=== PATIENT | male | born 1935 | race Caucasian/White ===

== ENCOUNTER 2017-08-30 08:24 | Emergency (ER) | payer MEDICARE, MEDICAID ==
[2017-08-30 08:39] VITALS: BP 118/43; RESP 21; TEMP 96.7; O2SAT 100
[2017-08-30] MEDS ORDERED: Sodium Chloride 0.9% 1,000 ML IV STA (09:11)
[2017-08-30] MEDS ORDERED: Magnesium Citrate Oral SOL (300 ml) PO ONE ×2 (09:12→11:05)
--- NOTE | 2017-08-30 09:14 | ED PDOC ---
HPI: General Adult Time Seen by Provider: 08/30/17 08:45 Chief Complaint (Nursing): Male Genitourinary Chief Complaint (Provider): Constipation History Per: Patient History/Exam Limitations: no limitations Onset/Duration Of Symptoms: Days (x1 week) Current Symptoms Are (Timing): Still Present Additional Complaint(s): Víctor Gonzalez is an 81 year old male, with a past medical history of hypertension, who presents to the emergency department complaining of constipation onset for 1 week and difficulty urinating onset for 2 days. He reports having a large hemorrhoid. Last bowel movement was 4 or 5 days ago. Patient denies any headache, chest pain, shortness of breath, abdominal pain, nausea or vomit. No further medical complaints. PMD: None provided. Past Medical History Reviewed: Historical Data, Nursing Documentation, Vital Signs Vital Signs: Last Vital Signs Temp 96.7 F L 08/30/17 08:37 Pulse 59 L 08/30/17 09:47 Resp 21 08/30/17 08:37 BP 118/43 L 08/30/17 08:37 Pulse Ox 100 08/30/17 09:47 - Medical History PMH: Fractures, HTN, Hypercholesterolemia Denies: HIV, Chronic Kidney Disease - Surgical History Surgical History: CABG - Family History Family History: States: Unknown Family Hx - Living Arrangements Living Arrangements: With Family - Social History Current smoker - smoking cessation education provided: No Alcohol: None Drugs: Denies - Home Medications Home Medications: Ambulatory Orders Medication Instructions Recorded Non-Formulary 1 tab PO 02/27/15 Polyethylene Glycol 3350 [Miralax] 17 g PO DAILY #30 packet 08/30/17 - Allergies Allergies/Adverse Reactions: Allergies Allergy/AdvReac Type Severity Reaction Status Date / Time No Known Allergies Allergy Verified 08/30/17 08:36 Review of Systems ROS Statement: Except As Marked, All Systems Reviewed And Found Negative Cardiovascular: Negative for: Chest Pain Respiratory: Negative for: Shortness of Breath Gastrointestinal: Positive for: Constipation. Negative for: Nausea, Vomiting, Abdominal Pain Genitourinary Male: Positive for: Incontinence Physical Exam - Reviewed Nursing Documentation Reviewed: Yes - Physical Exam Appears: Positive for: Well, Non-toxic, No Acute Distress Head Exam: Positive for: ATRAUMATIC, NORMAL INSPECTION, NORMOCEPHALIC Skin: Positive for: Normal Color, Warm, Dry Eye Exam: Positive for: EOMI, Normal appearance, PERRL Neck: Positive for: Normal, Painless ROM, Supple Cardiovascular/Chest: Positive for: Regular Rate, Rhythm. Negative for: Murmur Respiratory: Positive for: Normal Breath Sounds. Negative for: Respiratory Distress Gastrointestinal/Abdominal: Positive for: Normal Exam, Bowel Sounds, Soft. Negative for: Tenderness, Guarding, Rebound Rectal: Positive for: Normal Exam (witnessed by nurse and scribe. Good sphincter ), Hemorrhoids (large external. No thrombus. tender to touch), Other (copious stool. Disimpacted large quantities, non bloody appearance) Extremity: Positive for: Normal ROM. Negative for: Pedal Edema, Deformity, Swelling Neurologic/Psych: Positive for: Alert, Oriented. Negative for: Motor/Sensory Deficits - Laboratory Results Result Diagrams: 08/30/17 09:51 08/30/17 09:51 - ECG ECG Rhythm: Positive for: Sinus Rhythm Interpretation Of ECG: AV Block Rate: 59 O2 Sat by Pulse Oximetry: 100 (RA) Pulse Ox Interpretation: Normal Medical Decision Making Medical Decision Making: Initial Impression: constipation Initial Plan: --ECG --BMP --CBC w/ differential --Citrate of Mag 150 ml PO --NS IV 1,000 ml @ 1,000 mls/hr ---Urinalysis --reevaluation Scribe Attestation: Documented by Giovanny Maloney, acting as a scribe for Deysi Medina MD Provider Scribe Attestation: All medical record entries made by the Scribe were at my direction and personally dictated by me. I have reviewed the chart and agree that the record accurately reflects my personal performance of the history, physical exam, medical decision making, and the department course for this patient. I have also personally directed, reviewed, and agree with the discharge instructions and disposition. patient has had small amounts of bowel movements and has been able to micturate. Will discharge with Miralax to continue daily. All interactions were done in Cantonese, my [place] dialect. Patient expressed full understanding. Disposition - Clinical Impression Clinical Impression: Constipation - Patient ED Disposition Is Patient to be Admitted: No Doctor Will See Patient In The: Office Counseled Patient/Family Regarding: Diagnosis, Need For Followup, Rx Given - Disposition Disposition: Routine/Home Disposition Time: 14:20 Condition: IMPROVED Additional Instructions: If you have not had a colonoscopy, it is important for you to be scheduled for one. Prescriptions: Polyethylene Glycol 3350 [Miralax] 17 g PO DAILY #30 packet Instructions: Constipation (ED) Forms: [facility] (Swedish) - POA Present On Arrival: None
[2017-08-30 09:45] VITALS: PULSE 59
[2017-08-30] MEDS ORDERED: Magnesium Citrate Oral SOL (300 ml) ONE (09:52)
[2017-08-30 09:56] LABS: BASO % 0.2 % (0.0-2.0); EOS # 0.1 K/uL (0.0-0.7); EOS % 0.6 % (0.0-4.0); HEMATOCRIT 40.9 % (35.0-51.0); LYMPH # 0.9 K/uL (1.0-4.3); LYMPH % 6.1 % (20.0-40.0); MEAN CELL VOLUME 90.9 fl (80.0-94.0); MEAN CORPUSCULAR HEMOGLOBIN 30.6 pg (27.0-31.0); MEAN CORPUSCULAR HGB CONC 33.7 g/dL (33.0-37.0); MEAN PLATELET VOLUME 9.6 fl (7.2-11.7); MONO # 0.6 K/uL (0.0-0.8); MONO % 4.6 % (0.0-10.0); NEUT # 12.4 K/uL (1.8-7.0); NEUT % 88.5 % (50.0-75.0); PLATELET COUNT 196 K/uL (130-400); RED CELL DISTRIBUTION WIDTH 13.5 % (11.5-14.5); WHITE BLOOD COUNT 14.1 K/uL (4.8-10.8)
[2017-08-30 10:14] LABS: BLOOD UREA NITROGEN 22 mg/dl (9-20); CALCIUM 9.5 mg/dL (8.4-10.2); CARBON DIOXIDE 27 mmol/L (22-30); CHLORIDE 98 mmol/L (98-107); GFR AFRICAN-AMERICAN > 60; GLUCOSE,RANDOM 92 mg/dL (75-110); SODIUM 137 mmol/l (132-148)
[2017-08-30 10:15] LABS: URINE BILIRUBIN NEGATIVE (NEGATIVE); URINE BLOOD SMALL (NEGATIVE); URINE COLOR YELLOW (YELLOW); URINE GLUCOSE (UA) 50 mg/dL (Normal); URINE KETONE NEGATIVE (NEGATIVE); URINE LEUKOCYTE ESTERASE NEG Leu/uL (Negative); URINE PROTEIN NEGATIVE (NEGATIVE); URINE UROBILINOGEN 0.2-1.0 mg/dL (0.2-1.0); WBC URINE 1 /hpf (0-5)
[2017-08-30 10:17] LABS: RBC URINE 5 /hpf (0-3)
[2017-08-30 10:50] LABS: EOSINOPHIL 1 % (0-7); NEUTROPHIL 91 % (42-75); REACTIVE LYMPHOCYTES 1 % (0-0); TOTAL CELLS COUNTED 100
--- NOTE | 2017-08-31 10:41 | CARD ---
APPROVED REPORT EKG Measurement Heart [id number] <Conclusion> Sinus bradycardia with 1st degree AV block Incomplete right bundle branch block Borderline ECG
== END 2017-08-30 14:59 | disposition home or self-care (01) ==
LOC: H.ER 08:24
DX: K59.00 Constipation, unspecified (principal); I10 Essential (primary) hypertension; E78.00 Pure hypercholesterolemia, unspecified; I44.0 Atrioventricular block, first degree; Z95.1 Presence of aortocoronary bypass graft
CPT/HCPCS: 80048; 81003; 85025; 93005; 99284; J7040

== ENCOUNTER 2017-12-27 23:11 | Emergency (ER) | payer MEDICARE, MEDICAID ==
[2017-12-27 23:28] VITALS: TEMP 97.6
--- NOTE | 2017-12-27 23:52 | ED PDOC ---
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 denies: Nausea, Vomiting, Chest Pain, Urinary Symptoms Exacerbating Factors: None Last Bowel Movement: Days Ago (6+) Additional Complaint(s): 82yo mandarin speaking male presents c/o abdominal discomfort due to constipation, inability to have BM in almost a week. Has had chronic constipation before. Past Medical History Reviewed: Historical Data, Nursing Documentation, Vital Signs Vital Signs: Last Vital Signs Temp 97.6 F 12/27/17 23:19 Pulse 64 12/27/17 23:19 Resp 16 12/27/17 23:19 BP 111/52 L 12/27/17 23:19 Pulse Ox 100 12/27/17 23:54 - Medical History PMH: Fractures, HTN, Hypercholesterolemia Denies: HIV, Chronic Kidney Disease - Surgical History Surgical History: CABG Other surgeries: ? abdominal surgery for polyps? - Family History Family History: States: Unknown Family Hx - Living Arrangements Living Arrangements: With Family - Social History Current smoker - smoking cessation education provided: No - Home Medications Home Medications: Ambulatory Orders Medication Instructions Recorded Non-Formulary 1 tab PO 02/27/15 Polyethylene Glycol 3350 [Miralax] 17 g PO DAILY #30 packet 08/30/17 - Allergies Allergies/Adverse Reactions: Allergies Allergy/AdvReac Type Severity Reaction Status Date / Time No Known Allergies Allergy Verified 12/27/17 23:19 Review of Systems Constitutional: Negative for: Fever Respiratory: Negative for: Cough, Shortness of Breath Gastrointestinal: Positive for: Abdominal Pain, Constipation. Negative for: Nausea, Vomiting, Rectal Pain Genitourinary Male: Negative for: Dysuria Musculoskeletal: Negative for: Neck Pain Skin: Negative for: Rash, Lesions Neurological: Negative for: Weakness, Numbness Physical Exam - Reviewed Nursing Documentation Reviewed: Yes Vital Signs Reviewed: Yes - Physical Exam Appears: Positive for: Well, Non-toxic, No Acute Distress Head Exam: Positive for: ATRAUMATIC, NORMAL INSPECTION, NORMOCEPHALIC Skin: Positive for: Normal Color, Warm, DRY Eye Exam: Positive for: EOMI, Normal appearance, PERRL ENT: Positive for: Normal ENT Inspection Neck: Positive for: Normal, Painless ROM Cardiovascular/Chest: Positive for: Regular Rate, Rhythm Respiratory: Positive for: CNT, Normal Breath Sounds Gastrointestinal/Abdominal: Positive for: Soft, Tenderness (mild diffuse tenderness). Negative for: Guarding Back: Positive for: Normal Inspection Rectal: Positive for: Hemorrhoids (small 6:00), Other (+hard stool in vault). Negative for: Black Stool, Tenderness Extremity: Positive for: Normal ROM. Negative for: Tenderness Neurologic/Psych: Positive for: Alert, Oriented. Negative for: Motor/Sensory Deficits - ECG O2 Sat by Pulse Oximetry: 100 Pulse Ox Interpretation: Normal Medical Decision Making Medical Decision Making: basic labs, magnesium citrate and enema ordered Disposition - Clinical Impression Clinical Impression: Abdominal pain, Constipation - Disposition Disposition: Transfer of Care Disposition Time: 23:54 Condition: STABLE Forms: [employer] ([place] Island[place]) Patient Signed Over To: Arya Cloud
[2017-12-27] MEDS ORDERED: Magnesium Citrate Oral SOL (300 ml) PO ONE (23:54)
[2017-12-28 00:12] LABS: BASO % 0.2 % (0.0-2.0); EOS # 0.2 K/uL (0.0-0.7); EOS % 0.9 % (0.0-4.0); HEMOGLOBIN 12.1 g/dL (12.0-18.0); LYMPH # 0.7 K/uL (1.0-4.3); LYMPH % 3.3 % (20.0-40.0); MEAN CELL VOLUME 89.7 fl (80.0-94.0); MEAN CORPUSCULAR HEMOGLOBIN 30.3 pg (27.0-31.0); MEAN CORPUSCULAR HGB CONC 33.8 g/dL (33.0-37.0); MEAN PLATELET VOLUME 9.3 fl (7.2-11.7); MONO # 0.7 K/uL (0.0-0.8); MONO % 3.4 % (0.0-10.0); NEUT # 18.4 K/uL (1.8-7.0); NEUT % 92.2 % (50.0-75.0); PLATELET COUNT 187 K/uL (130-400); RBC 3.98 Mil/uL (4.40-5.90); RED CELL DISTRIBUTION WIDTH 13.7 % (11.5-14.5)
[2017-12-28 00:25] LABS: ALB/GLOB RATIO 1.1 (1.0-2.1); ALBUMIN 3.8 g/dL (3.5-5.0); CALCIUM 9.3 mg/dL (8.4-10.2)
[2017-12-28] MEDS ORDERED: Magnesium Citrate Oral SOL (300 ml) ONE (00:28)
--- NOTE | 2017-12-28 01:32 | RAD ---
EXAM: XR Abdomen 2 Views With XR Chest EXAM DATE/TIME: 12/27/2017 11:54 PM CLINICAL HISTORY: 82 years old, male; Signs and symptoms; Constipation TECHNIQUE: Frontal view of the chest, frontal view of the abdomen/pelvis and upright or decubitus view of the abdomen. COMPARISON: No relevant prior studies available. FINDINGS: Sternotomy wires. Clips in the left lower thorax. Left femoral hardware. The cardiac silouette is at the upper limits of normal. The lungs are clear. There is a cluster of air filled bowel loops in the right lower abdomen with a nonspecific appearance Stool is noted throughout the left colon likely mild constipation. Rounded calcifications in the pelvis likely phleboliths. Syndesmophyte formation in the spine. IMPRESSION: Probable left-sided constipation. Cluster of air-filled bowel loops in the lower right abdomen with nonspecific appearance at this time.
[2017-12-28] MEDS ORDERED: Iohexol 240 (50 ml) PO ONE (01:33)
[2017-12-28] MEDS ORDERED: Iohexol 240 (50 ml) ONE (01:50)
[2017-12-28 02:13] LABS: VENOUS BLOOD GAS BASE EXCESS 0.8 mmol/L (0.0-2.0); VENOUS BLOOD GAS PCO2 54 mmHg (40-60); VENOUS BLOOD GAS PO2 15 mm/Hg (30-55); VENOUS BLOOD PH 7.32 (7.32-7.43)
[2017-12-28] MEDS ORDERED: Iohexol 300 100 ML IJ ONE (03:49)
[2017-12-28 04:44] VITALS: BP 128/63; PULSE 76; RESP 18; O2SAT 99
[2017-12-28 05:00] LABS: BANDS 3 % (0-2); EOSINOPHIL 1 % (0-7); LYMPHOCYTE 3 % (20-50); MONOCYTE 4 % (0-10); NEUTROPHIL 87 % (42-75); REACTIVE LYMPHOCYTES 2 % (0-0); TOTAL CELLS COUNTED 100
[2017-12-28 05:01] LABS: PLATELET ESTIMATE NORMAL (NORMAL)
--- NOTE | 2017-12-28 05:30 | CT ---
EXAM: CT Abdomen and Pelvis With Intravenous Contrast EXAM DATE/TIME: 12/28/2017 1:33 AM CLINICAL HISTORY: 82 years old, male; Pain; Abdominal pain; Other: Rectal bleeding; Additional info: Abd pain, leukocytosis TECHNIQUE: Axial computed tomography images of the abdomen and pelvis with intravenous contrast. All CT scans at this facility use one or more dose reduction techniques, viz.: automated exposure control; ma/kV adjustment per patient size (including targeted exams where dose is matched to indication; i.e. head); or iterative reconstruction technique. Coronal and sagittal reformatted images were created and reviewed. CONTRAST: 95 mL of omnipaque 300 administered intravenously. COMPARISON: No relevant prior studies available. FINDINGS: Sternotomy wires. Hardware in the left femur. There is an 8 x 10 mm pleural-based area of consolidation in the left lower lung image 5 may be an area of chronic atelectasis although underlying developing lesion would also be possible. Recommend correlation with priors if they exist. Otherwise followup recommended. Small hypoattenuating hepatic lesions with the largest measuring 2 cm in the left lobe probable cysts or hemangiomas, some too small to accurately characterize. The gallbladder is distended. No pericholecystic inflammation identified. Trace prominence of the intrahepatic biliary ducts. Correlation with laboratory values may be helpful. The spleen and pancreas are normal. Slight fullness of the right renal collecting system likely secondary to dilated urinary bladder. No perinephric stranding. The colon and rectum are markedly dilated with stool consistent with severe constipation. The amount of stool suggests fecal impaction most notably in the rectum where there is slight haziness in the surrounding fat. A normal appendix is identified series 3 images 96 through 112. There are atherosclerotic changes of the aorta. There are degenerative changes in the osseous structures. IMPRESSION: Severe colonic and rectal constipation to the point of fecal impaction.
--- NOTE | 2017-12-28 05:39 | ED PDOC ---
- Laboratory Results Result Diagrams: 12/28/17 00:05 12/28/17 00:05 - ECG O2 Sat by Pulse Oximetry: 99 (RA) Pulse Ox Interpretation: Normal Medical Decision Making Medical Decision Making: Time: 00:00 --endorsed by Dr. Leonard to myself. Time: 01:33 Plan: --Abd Pelvis CT --VBG shock panel --Omnipaque 2 50 ml PO Abdomen Pelvis CT FINDINGS: Sternotomy wires. Hardware in the left femur. There is an 8 x 10 mm pleural-based area of consolidation in the left lower lung image 5 may be an area of chronic atelectasis although underlying developing lesion would also be possible. Recommend correlation with priors if they exist. Otherwise followup recommended. Small hypoattenuating hepatic lesions with the largest measuring 2 cm in the left lobe probable cysts or hemangiomas, some too small to accurately characterize. The gallbladder is distended. No pericholecystic inflammation identified. Trace prominence of the intrahepatic biliary ducts. Correlation with laboratory values may be helpful. The spleen and pancreas are normal. Slight fullness of the right renal collecting system likely secondary to dilated urinary bladder. No perinephric stranding. The colon and rectum are markedly dilated with stool consistent with severe constipation. The amount of stool suggests fecal impaction most notably in the rectum where there is slight haziness in the surrounding fat. A normal appendix is identified series 3 images 96 through 112. There are atherosclerotic changes of the aorta. There are degenerative changes in the osseous structures. IMPRESSION: Severe colonic and rectal constipation to the point of fecal impaction. Gas Welder #[id number] was used to communicate with patient. After CT, patient had an extremely large BM and felt much better. States that he no longer has pain. Advised to followup with PMD. Return precautions discussed. Leukocytosis likely 2/2 to pain. Scribe Attestation: Documented by Rosa Hooks acting as a scribe for Arya Cloud MD. Scribe Attestation: All medical record entries made by the Scribe were at my direction and personally dictated by me. I have reviewed the chart and agree that the record accurately reflects my personal performance of the history, physical exam, medical decision making, and the department course for this patient. I have also personally directed, reviewed, and agree with the discharge instructions and disposition. Disposition - Clinical Impression Clinical Impression: Constipation - POA Present On Arrival: None - Disposition Referrals: Deysi Medina MD [Staff Provider] - Disposition: Routine/Home Disposition Time: 07:05 Condition: IMPROVED Prescriptions: Docusate Sodium [Dulcolax Stool Softener] 100 mg PO BID #30 capsule Instructions: Constipation in Adults Forms: [facility] ([place] African)
== END 2017-12-28 07:28 | disposition home or self-care (01) ==
LOC: H.ER 23:11
DX: R10.9 Unspecified abdominal pain (principal); K59.00 Constipation, unspecified
CPT/HCPCS: 74022; 74177; 80053; 82803; 83690; 85025; 99284; Q9966; Q9967

== ENCOUNTER 2018-07-25 04:53 | Inpatient (IN) | payer MEDICARE ==
[2018-07-25] MEDS ORDERED: Sodium Chloride 0.9% 1,000 ML IV STA ×2 (05:02→06:47)
--- NOTE | 2018-07-25 05:37 | ED PDOC ---
HPI: General Adult Time Seen by Provider: 07/25/18 04:59 Chief Complaint (Nursing): Dizziness/Lightheaded Chief Complaint (Provider): Chills, abdominal pain, diarrhea History Per: Patient History/Exam Limitations: no limitations Onset/Duration Of Symptoms: Days (x 2) Current Symptoms Are (Timing): Still Present Additional Complaint(s): 82 year old male with a history of CAD and quadruple bypass surgery presents to the ED with chills, abdominal pain, nausea and diarrhea for the last 2 days. Patient reports 2 days of a sense of chills, lower abdominal pain and several episodes of non bloody diarrhea. He has also vomited once prior to arrival and complains of generalized weakness. He is unaware of a fever. PMD: Dr. Rudy Smith ([facility]) Past Medical History Reviewed: Historical Data, Nursing Documentation, Vital Signs Vital Signs: Last Vital Signs Temp 98.7 F 07/25/18 04:56 Pulse 91 H 07/25/18 04:56 Resp 16 07/25/18 04:56 BP 100/45 L 07/25/18 04:56 Pulse Ox 99 07/25/18 04:56 - Medical History PMH: CAD, Fractures, HTN, Hypercholesterolemia Denies: HIV, Chronic Kidney Disease - Surgical History Surgical History: CABG - Family History Family History: States: Unknown Family Hx - Home Medications Home Medications: Ambulatory Orders Medication Instructions Recorded Atorvastatin [Lipitor] 40 mg PO HS 07/25/18 HCTZ/Losartan Potassium [Hyzaar 1 tab PO DAILY 07/25/18 12.5 mg-50 mg] Metoprolol Tartrate [Lopressor] 100 mg PO Q12 07/25/18 RX: Aspirin [Ecotrin] 81 mg PO DAILY 07/25/18 amLODIPine [Norvasc] 5 mg PO DAILY 07/25/18 - Allergies Allergies/Adverse Reactions: Allergies Allergy/AdvReac Type Severity Reaction Status Date / Time No Known Allergies Allergy Verified 07/25/18 04:59 Review of Systems ROS Statement: Except As Marked, All Systems Reviewed And Found Negative Constitutional: Positive for: Chills. Negative for: Fever Gastrointestinal: Positive for: Nausea, Vomiting ( x 1), Abdominal Pain, Diarrhea Physical Exam - Reviewed Nursing Documentation Reviewed: Yes Vital Signs Reviewed: Yes - Physical Exam Appears: Positive for: Non-toxic, No Acute Distress Head Exam: Positive for: ATRAUMATIC, NORMAL INSPECTION, NORMOCEPHALIC Skin: Positive for: Normal Color, Warm, Dry Eye Exam: Positive for: EOMI, Normal appearance, PERRL ENT: Positive for: Other (mucous membranes are dry; poor dentition) Neck: Positive for: Normal, Painless ROM, Supple Cardiovascular/Chest: Positive for: Tachycardia (with regular rhythm). Negative for: Murmur Respiratory: Positive for: Normal Breath Sounds. Negative for: Wheezing Gastrointestinal/Abdominal: Positive for: Normal Exam, Soft. Negative for: Tenderness Extremity: Positive for: Normal ROM (x 4). Negative for: Deformity Neurologic/Psych: Positive for: Alert, Oriented. Negative for: Motor/Sensory Deficits - Laboratory Results Result Diagrams: 07/27/18 04:25 07/26/18 04:55 - ECG O2 Sat by Pulse Oximetry: 99 (RA) Pulse Ox Interpretation: Normal Medical Decision Making Medical Decision Makin:02 Impression: 82 year old man with diarrheal illness and fever Initial Plan: --CT Abd & Pelvis --EKG --Labs --CXR --NS IV --Tylenol 650 mg PO --Zofran Inj 4 mg IV 07:00 --Patient will be signed out to Dr. Coppola pending labs, CT and reevaluation. Scribe Attestation: Documented by Rosa Hooks, acting as a scribe for Frankie Oseguera MD Provider Scribe Attestation: All medical record entries made by the Scribe were at my direction and p ersonally dictated by me. I have reviewed the chart and agree that the record accurately reflects my personal performance of the history, physical exam, medical decision making, and the department course for this patient. I have also personally directed, reviewed, and agree with the discharge instructions and disposition. Disposition - Clinical Impression Clinical Impression: Hypotension, Sepsis, Diarrhea - Patient ED Disposition Is Patient to be Admitted: Transfer of Care - Disposition Disposition: Transfer of Care Disposition Time: 07:00 Condition: FAIR Patient Signed Over To: Darius Coppola - Pt Status Changed To: Hospital Disposition Of: Inpatient - Admit Certification Admit to Inpatient:: After my assessment, the patient will require hospitalization for at least two midnights. This is because of the severity of symptoms shown, intensity of services needed, and/or the medical risk in this patient being treated as an outpatient.
[2018-07-25 05:52] LABS: BASO % 0.1 % (0.0-2.0); EOS % 0.1 % (0.0-4.0); HEMOGLOBIN 11.3 g/dL (12.0-18.0); LYMPH # 0.1 K/uL (1.0-4.3); LYMPH % 1.9 % (20.0-40.0); MEAN CELL VOLUME 91.7 fl (80.0-94.0); MEAN CORPUSCULAR HGB CONC 33.8 g/dL (33.0-37.0); MEAN PLATELET VOLUME 10.6 fl (7.2-11.7); MONO % 0.5 % (0.0-10.0); NEUT # 5.3 K/uL (1.8-7.0); NEUT % 97.4 % (50.0-75.0); NRBC % 0.1 % (0.0-0.0); PLATELET COUNT 130 K/uL (130-400); RBC 3.66 Mil/uL (4.40-5.90); RED CELL DISTRIBUTION WIDTH 13.2 % (11.5-14.5); WHITE BLOOD COUNT 5.4 K/uL (4.8-10.8)
[2018-07-25 06:00] LABS: ALBUMIN 3.4 g/dL (3.5-5.0); CALCIUM 8.8 mg/dL (8.4-10.2)
[2018-07-25] MEDS ORDERED: Iohexol 240 (50 ml) PO ONE (06:08)
[2018-07-25 06:11] LABS: TROPONIN I 0.116 ng/mL (0.00-0.120)
[2018-07-25] MEDS ORDERED: Iohexol 240 (50 ml) ONE (06:54)
--- NOTE | 2018-07-25 07:01 | CARD ---
APPROVED REPORT Date of service: 07/25/2018 EKG Measurement Heart [id number] CT [id number] <Conclusion> Sinus rhythm with 1st degree AV block Incomplete right bundle branch block Nonspecific ST abnormality Abnormal ECG
--- NOTE | 2018-07-25 07:22 | ED PDOC ---
- Laboratory Results Result Diagrams: 07/25/18 05:46 07/25/18 05:46 - ECG O2 Sat by Pulse Oximetry: 100 Medical Decision Making Medical Decision Makin Patient endorsed to me by Dr. Oseguera pending labs, CT, and reevaluation. Pt appears to be septic with UTI as source. Lactate elevated with fluid bolus given, repeat lactate dropping. BP 90 systolic range. Will start IV Vanco Zosyn. BUN/Creat noted. Scribe Attestation: Documented by Jorge Bustillo, acting as a scribe for Darius Coppola MD. Provider Scribe Attestation: All medical record entries made by the Scribe were at my direction and personally dictated by me. I have reviewed the chart and agree that the record accurately reflects my personal performance of the history, physical exam, medical decision making, and the department course for this patient. I have also personally directed, reviewed, and agree with the discharge instructions and disposition. Disposition - Clinical Impression Clinical Impression: Sepsis, UTI (urinary tract infection), Renal insufficiency - POA Present On Arrival: None - Disposition Disposition: Admitted as In-Patient Disposition Time: 10:40 Condition: FAIR Forms: [employer] (Mauritanian)
[2018-07-25 07:24] LABS: ANISOCYTOSIS SLIGHT; LYMPHOCYTE 3 % (20-50); MICROCYTOSIS SLIGHT; MONOCYTE 2 % (0-10); NEUTROPHIL 95 % (42-75); PLATELET ESTIMATE SLIGHTLY DECREASED (NORMAL); TOTAL CELLS COUNTED 100
[2018-07-25 07:25] LABS: LARGE PLATELETS PRESENT; OVALOCYTES SLIGHT
--- NOTE | 2018-07-25 08:28 | RAD ---
Date of service: 07/25/2018 HISTORY: fever COMPARISON: 02/26/2015 FINDINGS: LUNGS: No interval consolidation appreciated. Central bronchovascular markings appear borderline prominent-in part likely technical. PLEURA: No significant pleural effusion identified, no pneumothorax apparent. CARDIOVASCULAR: There is presence of aortic atherosclerotic calcification on x-ray. Mild cardiomegaly present. No significant appearing pulmonary vascular congestion. OSSEOUS STRUCTURES: Moderate thoracic spondylosis. Interval midline sternotomy and coronary artery bypass surgery. VISUALIZED UPPER ABDOMEN: Normal. OTHER FINDINGS: None. IMPRESSION: Interval sternotomy/interval coronary artery bypass surgery. No consolidation to suggest a pulmonary infiltrate
[2018-07-25] MEDS ORDERED: Potassium Chloride 20 mEq ER Tab PO ONE ×2 (08:59→09:55)
[2018-07-25 09:58] LABS: VENOUS BLOOD GAS BASE EXCESS -4.7 mmol/L (0.0-2.0); VENOUS BLOOD GAS PCO2 37 mmHg (40-60); VENOUS BLOOD GAS PO2 37 mm/Hg (30-55); VENOUS BLOOD PH 7.35 (7.32-7.43)
[2018-07-25 10:22] LABS: SQUAMOUS EPITHIAL < 1 /hpf (0-5); URINE BACTERIA MANY (<OCC); URINE BILIRUBIN NEGATIVE (NEGATIVE); URINE BLOOD MODERATE (NEGATIVE); URINE CLARITY CLOUDY (Clear); URINE COLOR YELLOW (YELLOW); URINE GLUCOSE (UA) NEG (Normal); URINE LEUKOCYTE ESTERASE LARGE Leu/uL (Negative); URINE PROTEIN 30 mg/dL (NEGATIVE); URINE UROBILINOGEN 0.2-1.0 mg/dL (0.2-1.0)
--- NOTE | 2018-07-25 10:23 | CT ---
Date of service: 07/25/2018 PROCEDURE: CT Abdomen and Pelvis without intravenous contrast HISTORY: abd pain/diarrhea' COMPARISON: CT scan of the abdomen pelvis dated 01/07/2018 TECHNIQUE: Contiguous images were obtained from the domes of the diaphragms to the upper thighs without the administration of intravenous contrast. Oral contrast was administered. Radiation dose: Total exam DLP = 200.6 mGy-cm. This CT exam was performed using one or more of the following dose reduction techniques: Automated exposure control, adjustment of the mA and/or kV according to patient size, and/or use of iterative reconstruction technique. FINDINGS: LOWER THORAX: Cardiomegaly. Coronary arterial and valvular calcifications. Chronic interstitial markings. Bibasilar atelectasis/scarring.. LIVER: 2.3 cm medial right hepatic lobe cyst/hemangioma redemonstrated. Additional scattered small cysts/hemangiomas redemonstrated. No gross lesion or ductal dilatation. GALLBLADDER AND BILE DUCTS: Unremarkable. PANCREAS: Unremarkable. No gross lesion or ductal dilatation. SPLEEN: Unremarkable. ADRENALS: Left adrenal nodular thickening. No mass. KIDNEYS AND URETERS: Unremarkable. No hydronephrosis. No solid mass. VASCULATURE: Unremarkable. No aortic aneurysm. Aortic atherosclerotic calcification and mural plaque present. BOWEL: Unremarkable. No obstruction. No gross mural thickening. APPENDIX: Unremarkable. Normal appendix. PERITONEUM: Unremarkable. No free fluid. No free air. LYMPH NODES: Unremarkable. No enlarged lymph nodes. BLADDER: Unremarkable. REPRODUCTIVE: Prostatomegaly. BONES: No acute fracture. Spinal degenerative changes. Partially imaged left femoral intramedullary martha and screw OTHER FINDINGS: None. IMPRESSION: No acute abdominal pelvic pathology. Stable findings as above.
[2018-07-25] MEDS ORDERED: Piperacillin/Tazobact 3.375 GM in Sodium Chloride 0.9% 100 ML IVPB STA (10:30)
[2018-07-25] MEDS ORDERED: Piperacillin/Tazobact 3.375 gm Inj IVPB ONE (10:37)
[2018-07-25] MEDS ORDERED: Vancomycin 1 g Inj ONE (11:37)
--- NOTE | 2018-07-25 12:31 | CP.PCM.HP ---
History of Present Illness - History of Present Illness History of Present Illness: 82 year old male with a history of CAD and quadruple bypass surgery, HTN and HLD presents to the ED c/o episodes of chills, abdominal pain, nausea and 5 episodes of NB diarrhea for the last 2 days. He has also vomited once prior to arrival and complains of generalized weakness. He is unaware of a fever. Associated sob. On ED blood pressure was found in the low side with associated tachycardia. Patient denies chest pain, headaches, blurred vision, dizziness, no urinary symptoms, recent illness or sick contacts. PMD: Dr. Rudy Smith ([facility]) PMH: HTN, HLD, CAD PSH: coronary bypass x4 Meds: as bellow NKDA FMH: noncontributory SH: denies tobacco, etoh or ilicit drugs Present on Admission - Present on Admission Any Indicators Present on Admission: No Review of Systems - Review of Systems All systems: reviewed and no additional remarkable complaints except (HPI) Past Patient History - Tetanus Immunizations Tetanus Immunization: Unknown - Past Medical History & Family History Past Medical History?: Yes - Past Social History Smoking Status: Never Smoked - CARDIAC Hx Hypercholesterolemia: Yes Hx Hypertension: Yes - PULMONARY Hx Respiratory Disorders: No - NEUROLOGICAL Hx Neurological Disorder: No - HEENT Hx HEENT Problems: No - RENAL Hx Chronic Kidney Disease: No - ENDOCRINE/METABOLIC Hx Endocrine Disorders: No - HEMATOLOGICAL/ONCOLOGICAL Hx Human Immunodeficiency Virus (HIV): No - INTEGUMENTARY Hx Dermatological Problems: No - MUSCULOSKELETAL/RHEUMATOLOGICAL Hx Fractures: Yes - GASTROINTESTINAL Hx Gastrointestinal Disorders: No - GENITOURINARY/GYNECOLOGICAL Hx Genitourinary Disorders: No - PSYCHIATRIC Hx Psychophysiologic Disorder: No Hx Substance Use: No - SURGICAL HISTORY Hx Coronary Artery Bypass Graft: Yes - ANESTHESIA Hx Anesthesia: Yes Hx Anesthesia Reactions: No Hx Malignant Hyperthermia: No Meds Allergies/Adverse Reactions: Allergies Allergy/AdvReac Type Severity Reaction Status Date / Time No Known Allergies Allergy Verified 07/25/18 04:59 Physical Exam - Constitutional Appears: No Acute Distress - Head Exam Head Exam: NORMAL INSPECTION - Eye Exam Eye Exam: EOMI - Respiratory Exam Respiratory Exam: Clear to Auscultation Bilateral - Cardiovascular Exam Cardiovascular Exam: REGULAR RHYTHM, +S1, +S2 - GI/Abdominal Exam GI & Abdominal Exam: Soft. absent: Distended, Tenderness - Extremities Exam Extremities exam: Negative for: pedal edema - Neurological Exam Neurological exam: Alert, Oriented x3 - Skin Skin Exam: Dry, Warm Results - Vital Signs Recent Vital Signs: Last Vital Signs Temp 98.2 F 07/25/18 12:29 Pulse 97 H 07/25/18 12:29 Resp 16 07/25/18 12:29 BP 91/45 L 07/25/18 12:29 Pulse Ox 98 07/25/18 12:29 - Labs Result Diagrams: 07/25/18 05:46 07/25/18 05:46 Labs: Laboratory Results - last 24 hr 07/25/18 07/25/18 07/25/18 05:10 05:46 05:46 WBC 5.4 D RBC 3.66 L Hgb 11.3 L Hct 33.5 L MCV 91.7 D MCH 31.0 MCHC 33.8 RDW 13.2 Plt Count 130 MPV 10.6 Neut % (Auto) 97.4 H Lymph % (Auto) 1.9 L K[place]t % (Auto) 0.5 Eos % (Auto) 0.1 Baso % (Auto) 0.1 Neut # (Auto) 5.3 Lymph # (Auto) 0.1 L Knott # (Auto) 0.0 Eos # (Auto) 0.0 Baso # (Auto) 0.0 Neutrophils % (Manual) 95 H Lymphocytes % (Manual) 3 L Monocytes % (Manual) 2 Platelet Estimate Slightly decreased L Large Platelets Present Anisocytosis (manual) Slight Microcytosis (manual) Slight Ovalocytes Slight pO2 VBG pH VBG pCO2 VBG HCO3 VBG Total CO2 VBG O2 Sat (Calc) VBG Base Excess VBG Potassium Glucose Lactate FiO2 Crit Value Called To Crit Value Called By Crit Value Read Back Blood Gas Notified Time Sodium 136 Potassium 2.8 L Chloride 103 Carbon Dioxide 22 Anion Gap 14 BUN 38 H Creatinine 2.0 H Est GFR ( Amer) 39 Est GFR (Non-Af Amer) 32 POC Glucose (mg/dL) 145 H Random Glucose 139 H Lactic Acid Calcium 8.8 Total Bilirubin 2.2 H AST 59 D ALT 31 Alkaline Phosphatase 234 H D Troponin I 0.1160 Total Protein 6.8 Albumin 3.4 L Globulin 3.5 Albumin/Globulin Ratio 1.0 Venous Blood Potassium Urine Color Urine Clarity Urine pH Ur Specific Seltzer Urine Protein Urine Glucose (UA) Urine Ketones Urine Blood Urine Nitrate Urine Bilirubin Urine Urobilinogen Ur Leukocyte Esterase Urine RBC (Auto) Urine Microscopic WBC Ur Squamous Epith Cells Urine Bacteria Influenza Typ A,B (EIA) 07/25/18 07/25/18 07/25/18 05:46 06:58 09:01 WBC RBC Hgb Hct MCV MCH MCHC RDW Plt Count MPV Neut % (Auto) Lymph % (Auto) Knott % (Auto) Eos % (Auto) Baso % (Auto) Neut # (Auto) Lymph # (Auto) Knott # (Auto) Eos # (Auto) Baso # (Auto) Neutrophils % (Manual) Lymphocytes % (Manual) Monocytes % (Manual) Platelet Estimate Large Platelets Anisocytosis (manual) Microcytosis (manual) Ovalocytes pO2 37 VBG pH 7.35 VBG pCO2 37 L VBG HCO3 20.6 VBG Total CO2 21.5 L VBG O2 Sat (Calc) 76.9 H VBG Base Excess -4.7 L VBG Potassium 2.5 L* Glucose 115 H Lactate 2.1 FiO2 21.0 Crit Value Called To Dr terrence lama Crit Value Called By 15 Crit Value Read Back Y Blood Gas Notified Time 1000 Sodium 132.0 Potassium Chloride 105.0 Carbon Dioxide Anion Gap BUN Creatinine Est GFR ( Amer) Est GFR (Non-Af Amer) POC Glucose (mg/dL) Random Glucose Lactic Acid 2.7 H Calcium Total Bilirubin AST ALT Alkaline Phosphatase Troponin I Total Protein Albumin Globulin Albumin/Globulin Ratio Venous Blood Potassium 2.5 L* Urine Color Urine Clarity Urine pH Ur Specific Seltzer Urine Protein Urine Glucose (UA) Urine Ketones Urine Blood Urine Nitrate Urine Bilirubin Urine Urobilinogen Ur Leukocyte Esterase Urine RBC (Auto) Urine Microscopic WBC Ur Squamous Epith Cells Urine Bacteria Influenza Typ A,B (EIA) Negative for flu a/b 07/25/18 10:04 WBC RBC Hgb Hct MCV MCH MCHC RDW Plt Count MPV Neut % (Auto) Lymph % (Auto) Knott % (Auto) Eos % (Auto) Baso % (Auto) Neut # (Auto) Lymph # (Auto) Knott # (Auto) Eos # (Auto) Baso # (Auto) Neutrophils % (Manual) Lymphocytes % (Manual) Monocytes % (Manual) Platelet Estimate Large Platelets Anisocytosis (manual) Microcytosis (manual) Ovalocytes pO2 VBG pH VBG pCO2 VBG HCO3 VBG Total CO2 VBG O2 Sat (Calc) VBG Base Excess VBG Potassium Glucose Lactate FiO2 Crit Value Called To Crit Value Called By Crit Value Read Back Blood Gas Notified Time Sodium Potassium Chloride Carbon Dioxide Anion Gap BUN Creatinine Est GFR ( Amer) Est GFR (Non-Af Amer) POC Glucose (mg/dL) Random Glucose Lactic Acid Calcium Total Bilirubin AST ALT Alkaline Phosphatase Troponin I Total Protein Albumin Globulin Albumin/Globulin Ratio Venous Blood Potassium Urine Color Yellow Urine Clarity Cloudy Urine pH 6.0 Ur Specific Seltzer 1.009 Urine Protein 30 Urine Glucose (UA) Neg Urine Ketones Negative Urine Blood Moderate Urine Nitrate Positive H Urine Bilirubin Negative Urine Urobilinogen 0.2-1.0 Ur Leukocyte Esterase Large Urine RBC (Auto) 6 H Urine Microscopic WBC 178 H Ur Squamous Epith Cells < 1 Urine Bacteria Many H Influenza Typ A,B (EIA) Assessment & Plan - Assessment and Plan (Free Text) Assessment: 82 yo male patient with PMH of HTN, HLD and CAD admitted with UTI and sepsis signs. Plan: - hypotension, tachycardia, afebrile - labs reviewed WBC wnl, lactate 2.1 - hypokalemia, replacing - DANIEL Cr 2.0 - gentle IV fluids - hold BP meds for now - s/p vanco and zocyn in ED - Abd CT negative for pyelo or hydronephrosis - f/u labs in am - rest of home meds resumed - continue rest of plan as ordered Case seen and examined with Dr Santos
[2018-07-25] MEDS: Sodium Chloride 0.9% 1,000 ML IV SCH (16:00)
[2018-07-25] MEDS ORDERED: Influenza Vaccine 60 MCG/0.5 ML SYR (3 yr & up) IM ONE (18:30)
[2018-07-25] MEDS ORDERED: Pneumococcal 23-Valent Vaccine IM ONE (18:31)
[2018-07-26] MEDS: Sodium Chloride 0.9% 1,000 ML IV SCH ×2 (05:00→14:19)
[2018-07-26 05:44] LABS: BASO % 0.2 % (0.0-2.0); EOS % 0.2 % (0.0-4.0); LYMPH # 0.7 K/uL (1.0-4.3); LYMPH % 3.4 % (20.0-40.0); MEAN CELL VOLUME 91.9 fl (80.0-94.0); MEAN CORPUSCULAR HEMOGLOBIN 30.5 pg (27.0-31.0); MEAN CORPUSCULAR HGB CONC 33.2 g/dL (33.0-37.0); MEAN PLATELET VOLUME 10.6 fl (7.2-11.7); MONO # 1.3 K/uL (0.0-0.8); MONO % 6.5 % (0.0-10.0); NEUT # 18.4 K/uL (1.8-7.0); NEUT % 89.7 % (50.0-75.0); RBC 3.29 Mil/uL (4.40-5.90); RED CELL DISTRIBUTION WIDTH 13.8 % (11.5-14.5); WHITE BLOOD COUNT 20.5 K/uL (4.8-10.8)
[2018-07-26 06:07] LABS: ALB/GLOB RATIO 0.9 (1.0-2.1); ALBUMIN 2.6 g/dL (3.5-5.0); CALCIUM 7.8 mg/dL (8.4-10.2)
[2018-07-26] MEDS ORDERED: Enoxaparin 40 mg Syringe SC SCH (09:00)
[2018-07-26] MEDS ORDERED: Potassium Chloride 20 mEq/15 ml LIQ UD PO ONE (12:45)
--- NOTE | 2018-07-26 17:47 | CP.PCM.PN ---
Subjective - Date & Time of Evaluation Date of Evaluation: 07/26/18 Time of Evaluation: 10:09 - Subjective Subjective: 82 y/o M seen and examined by bedside with Dr Santos. Pt reports feeling well, denies dysuria, urianry frequency abdominal pain. Pt afebrile, tolerating PO with No acute events overnight. Objective - Vital Signs/Intake and Output Vital Signs (last 24 hours): Temp Pulse Resp BP Pulse Ox 98.1 F 108 H 18 128/65 96 07/26/18 16:18 07/26/18 16:18 07/26/18 16:18 07/26/18 16:18 07/26/18 16:18 - Medications Medications: Current Medications Acetaminophen (Tylenol 325mg Tab) 650 mg PO Q6 PRN PRN Reason: Fever >100.4 F Aspirin (Ecotrin) 81 mg PO DAILY [facility] Last Admin: 07/26/18 09:16 Dose: 81 mg Atorvastatin Calcium (Lipitor) 40 mg PO HS [facility] Last Admin: 07/25/18 21:38 Dose: 40 mg Heparin Sodium (Porcine) (Heparin) 5,000 units SC Q12 [facility]; Protocol Last Admin: 07/26/18 09:16 Dose: 5,000 units Ceftriaxone Sodium 1 gm/ (Sodium Chloride) 100 mls @ 100 mls/hr IVPB DAILY [facility]; Protocol Last Admin: 07/26/18 11:10 Dose: 100 mls/hr Sodium Chloride (Sodium Chloride 0.9%) 1,000 mls @ 75 mls/hr IV .[id number] [facility] Stop: 07/27/18 13:08 Last Admin: 07/26/18 14:19 Dose: 75 mls/hr - Labs Labs: 07/26/18 04:55 07/26/18 04:55 - Constitutional Appears: No Acute Distress - Head Exam Head Exam: ATRAUMATIC, NORMAL INSPECTION - Eye Exam Eye Exam: EOMI - ENT Exam ENT Exam: Mucous Membranes Dry - Neck Exam Neck Exam: Full ROM. absent: Meningismus - Respiratory Exam Respiratory Exam: NORMAL BREATHING PATTERN. absent: Rhonchi, Wheezes - Cardiovascular Exam Cardiovascular Exam: REGULAR RHYTHM, +S1, +S2 - GI/Abdominal Exam GI & Abdominal Exam: Soft. absent: Distended, Guarding, Tenderness - Extremities Exam Extremities Exam: Full ROM. absent: Calf Tenderness - Back Exam Back Exam: Full ROM. absent: CVA tenderness (L), CVA tenderness (R), paraspinal tenderness - Neurological Exam Neurological Exam: Alert, Awake, Oriented x3 Assessment and Plan - Assessment and Plan (Free Text) Assessment: 82 yo male patient with PMH of HTN, HLD and CAD admitted with UTI and sepsis signs. - Abd CT negative for pyelo or hydronephrosis PLAN: --WBC jumped to 20.5-elevated, lactate 2.1 --DANIEL: Cr trending down 1.7 today. --ID consult ordered, Dr Abdalla, Awaiting recommendations. --Continue Ceftriaxone for now. --F/u CBC tomorrow --Continue rest of plan as ordered Case discussed with Dr Santos, FM attending monogram operator
[2018-07-26] MEDS ORDERED: Meropenem 1 GM in Sodium Chloride 0.9% 100 ML IVPB ONE (19:44)
[2018-07-26] MEDS ORDERED: Meropenem 500 MG in Sodium Chloride 0.9% 100 ML IVPB SCH (19:45)
--- NOTE | 2018-07-26 19:46 | CP.PCM.CON ---
History of Present Illness - History of Present Illness History of Present Illness: admitted for gram neg sepsi- urine as source Merrem added pending ID or organism Past Patient History - Tetanus Immunizations Tetanus Immunization: Unknown - Past Medical History & Family History Past Medical History?: Yes - Past Social History Smoking Status: Never Smoked - CARDIAC Hx Hypercholesterolemia: Yes Hx Hypertension: Yes - PULMONARY Hx Respiratory Disorders: No - NEUROLOGICAL Hx Neurological Disorder: No - HEENT Hx HEENT Problems: No - RENAL Hx Chronic Kidney Disease: No - ENDOCRINE/METABOLIC Hx Endocrine Disorders: No - HEMATOLOGICAL/ONCOLOGICAL Hx Human Immunodeficiency Virus (HIV): No - INTEGUMENTARY Hx Dermatological Problems: No - MUSCULOSKELETAL/RHEUMATOLOGICAL Hx Falls: No Hx Fractures: Yes - GASTROINTESTINAL Hx Gastrointestinal Disorders: No - GENITOURINARY/GYNECOLOGICAL Hx Genitourinary Disorders: No - PSYCHIATRIC Hx Psychophysiologic Disorder: No Hx Substance Use: No - SURGICAL HISTORY Hx Coronary Artery Bypass Graft: Yes - ANESTHESIA Hx Anesthesia: Yes Hx Anesthesia Reactions: No Hx Malignant Hyperthermia: No Meds Allergies/Adverse Reactions: Allergies Allergy/AdvReac Type Severity Reaction Status Date / Time No Known Allergies Allergy Verified 07/25/18 04:59 - Medications Medications: Current Medications Acetaminophen (Tylenol 325mg Tab) 650 mg PO Q6 PRN PRN Reason: Fever >100.4 F Aspirin (Ecotrin) 81 mg PO DAILY [facility] Last Admin: 07/26/18 09:16 Dose: 81 mg Atorvastatin Calcium (Lipitor) 40 mg PO HS [facility] Last Admin: 07/25/18 21:38 Dose: 40 mg Heparin Sodium (Porcine) (Heparin) 5,000 units SC Q12 [facility]; Protocol Last Admin: 07/26/18 09:16 Dose: 5,000 units Sodium Chloride (Sodium Chloride 0.9%) 1,000 mls @ 75 mls/hr IV .[id number] [facility] Stop: 07/27/18 13:08 Last Admin: 07/26/18 14:19 Dose: 75 mls/hr Meropenem 1 gm/ Sodium (Chloride) 100 mls @ 100 mls/hr IVPB ONCE ONE; Protocol Stop: 07/26/18 20:43 Results - Vital Signs Recent Vital Signs: Last Vital Signs Temp 98.1 F 07/26/18 16:18 Pulse 108 H 07/26/18 16:18 Resp 18 07/26/18 16:18 BP 128/65 07/26/18 16:18 Pulse Ox 96 07/26/18 16:18 - Labs Result Diagrams: 07/26/18 04:55 07/26/18 04:55 Labs: Laboratory Results - last 24 hr 07/25/18 07/26/18 07/26/18 13:26 04:55 04:55 WBC 20.5 H D RBC 3.29 L Hgb 10.0 L Hct 30.2 L MCV 91.9 MCH 30.5 MCHC 33.2 RDW 13.8 Plt Count 108 L D MPV 10.6 Neut % (Auto) 89.7 H Lymph % (Auto) 3.4 L School[place] % (Auto) 6.5 Eos % (Auto) 0.2 Baso % (Auto) 0.2 Neut # (Auto) 18.4 H Lymph # (Auto) 0.7 L [place] # (Auto) 1.3 H Eos # (Auto) 0.0 Baso # (Auto) 0.0 Sodium 140 Potassium 3.5 L Chloride 111 H Carbon Dioxide 20 L Anion Gap 13 BUN 32 H Creatinine 1.7 H Est GFR ( Amer) 47 Est GFR (Non-Af Amer) 39 Random Glucose 101 Calcium 7.8 L Total Bilirubin 1.8 H AST 47 ALT 34 Alkaline Phosphatase 90 Total Protein 5.6 L Albumin 2.6 L D Globulin 3.0 Albumin/Globulin Ratio 0.9 L Procalcitonin 125.74 H
[2018-07-27] MEDS: Meropenem 500 MG in Sodium Chloride 0.9% 100 ML IVPB SCH ×3 (05:06→22:22)
[2018-07-27 05:57] LABS: HEMOGLOBIN 10.5 g/dL (12.0-18.0); MEAN CELL VOLUME 91.3 fl (80.0-94.0); MEAN CORPUSCULAR HEMOGLOBIN 30.7 pg (27.0-31.0); MEAN CORPUSCULAR HGB CONC 33.6 g/dL (33.0-37.0); RBC 3.43 Mil/uL (4.40-5.90); RED CELL DISTRIBUTION WIDTH 13.3 % (11.5-14.5); WHITE BLOOD COUNT 10.9 K/uL (4.8-10.8)
--- NOTE | 2018-07-27 13:09 | CARD ---
APPROVED REPORT Date of service: 07/27/2018 EXAM: Two-dimensional and M-mode echocardiogram with Doppler and color Doppler. Other Information Quality : AverageRhythm : Atrial Fibrillation INDICATION Atrial Fibrillation Surgery/Intervention CABD DIMENSIONS IVSd1.05 (0.7-1.1cm)LVDd4.18 (3.9-5.9cm) LVOT Diameter1.55 (1.8-2.4cm)PWd0.79 (0.7-1.1cm) IVSs1.04 (0.8-1.2cm)LVDs3.41 (2.5-4.0cm) FS (%) 18.4 %PWs0.89 (0.8-1.2cm) M-Mode DIMENSIONS Left Atrium (MM)3.15 (2.5-4.0cm)IVSd0.44 (0.7-1.1cm) Aortic Root3.24 (2.2-3.7cm)LVDd5.15 (4.0-5.6cm) Aortic Cusp Exc.1.74 (1.5-2.0cm)PWd0.79 (0.7-1.1cm) IVSs0.76 cmFS (%) 54 % LVDs2.38 (2.0-3.8cm)PWs2.15 cm Aortic Valve AoV Peak Blifiaro892.2cm/sAoV VTI26.5cmAO Peak GR.11mmHg LVOT Peak Vmptthqe28.2cm/sLVOT VTI18.50cmAO Mean GR.6mmHg NEDRA (VMAX)0.39kg5GSW (VTI)0.59bj0LX P 1/2 Dypz647ua Mitral Valve MV E Ftjqtunr434.0cm/sMV DECEL [id number] A Bfdsfgiz28.9cm/s MV DUT02vdX/A ratio3.8MVA (PHT)5.72cm2 TDI Lateral E' Peak V12.63cm/sMedial E' Peak V12.14cm/sE/Lateral E'10.1 E/Medial E'10.5 Tricuspid Valve TR Peak Ohpkbuln309ez/sRAP CATUYBSY32eoPsUO Peak Gr.25mmHg [id number] LEFT VENTRICLE The left ventricle is normal size. There is normal left ventricular wall thickness. The left ventricular systolic function is normal. The estimated ejection fraction is 55-60% No regional wall motion abnormalities noted.. The left ventricular diastolic function cannot be assessed due to underlying atrial fibrillation. No left ventricle thrombus noted on this study. There is no ventricular septal defect visualized. There is no left ventricular aneurysm. There is no mass noted in the left ventricle. RIGHT VENTRICLE The right ventricle is normal size. There is normal right ventricular wall thickness. The right ventricular systolic function is normal. ATRIA The left atrium size is normal. The right atrium size is normal. The interatrial septum is intact with no evidence for an atrial septal defect. AORTIC VALVE The aortic valve is normal in structure. Mild aortic regurgitation is present. There is no aortic valvular stenosis. There is no aortic valvular vegetation. MITRAL VALVE The mitral valve is normal in structure. There is no evidence of mitral valve prolapse. There is no mitral valve stenosis. There is mild mitral valve regurgitation noted. TRICUSPID VALVE The tricuspid valve is normal in structure. There is mild tricuspid valve regurgitation noted. RVSP is calculated at 35 mm Hg. There is no tricuspid valve prolapse or vegetation. There is no tricuspid valve stenosis. PULMONIC VALVE The pulmonary valve is normal in structure. There is no pulmonic valvular regurgitation. There is no pulmonic valvular stenosis. GREAT VESSELS The aortic root is normal in size. The ascending aorta is normal in size. The pulmonary artery is normal. The IVC is normal in size and collapses >50% with inspiration. PERICARDIAL EFFUSION There is no pericardial effusion. There is no pleural effusion. <Conclusion> The estimated ejection fraction is 55-60% The left ventricular diastolic function cannot be assessed due to underlying atrial fibrillation. Mild aortic regurgitation is present. There is mild mitral valve regurgitation noted. There is mild tricuspid valve regurgitation noted. RVSP is calculated at 35 mm Hg.
--- NOTE | 2018-07-27 13:33 | CARD ---
APPROVED REPORT Date of service: 07/27/2018 EKG Measurement Heart [id number] P81 [id number] <Conclusion> Atrial flutter with variable AV block Nonspecific ST and T wave abnormality Abnormal ECG
--- NOTE | 2018-07-27 14:06 | CP.PCM.CON ---
History of Present Illness - History of Present Illness History of Present Illness: 82 year old male with a history of CAD and quadruple bypass surgery, HTN and HLD presents to the ED c/o episodes of chills, abdominal pain, nausea and 5 episodes of NB diarrhea for the last 2 days. He has also vomited once prior to arrival and complains of generalized weakness. He is unaware of a fever. Associated sob. POSSIBLE URINE SOURCE CT ABD NEG IV MERREM ADDED PMH: HTN, HLD, CAD PSH: coronary bypass x4 Meds: as bellow NKDA FMH: noncontributory SH: denies tobacco, etoh or ilicit drugs Review of Systems - Review of Systems All systems: reviewed and no additional remarkable complaints except - Constitutional Constitutional: Anorexia, Chills. absent: As Per HPI, Daytime Sleepiness, Excessive Sweating, Fatigue, Fever, Frequent Falls, Headache, Increased Appetite, Lethargy, Malaise, Night Sweats, Snoring, Sleep Apnea, Weight Gain, Weight Loss, Weakness, Other - EENT Eyes: absent: As Per HPI, Blind Spots, Blurred Vision, Change in Vision, Decreased Night Vision, Diplopia, Discharge, Dry Eye, Exophthalmos, Floaters, Irritation, Itchy Eyes, Loss of Peripheral Vision, Pain, Photophobia, Requires Corrective Lenses, Sees Flashes, Spots in Vision, Tunnel Vision, Other Visual Disturbances, Loss of Vision, Other Ears: absent: As Per HPI, Decreased Hearing, Ear Discharge, Ear Pain, Tinnitus, Abnormal Hearing, Disequilibrium, Dizziness, Other Nose/Mouth/Throat: absent: As Per HPI, Epistaxis, Nasal Congestion, Nasal Discharge, Nasal Obstruction, Nasal Trauma, Nose Pain, Post Nasal Drip, Sinus Pain, Sinus Pressure, Bleeding Gums, Change in Voice, Dental Pain, Dry Mouth, Dysphagia, Halitosis, Hoarsness, Lip Swelling, Mouth Lesions, Mouth Pain, Odynophagia, Sore Throat, Throat Swelling, Tongue Swelling, Facial Pain, Neck Pain, Neck Mass, Other - Cardiovascular Cardiovascular: absent: As Per HPI, Acrocyanosis, Chest Pain, Chest Pain at Rest, Chest Pain with Activity, Claudication, Diaphoresis, Dyspnea, Dyspnea on Exertion, Edema, Irregular Heart Rhythm, Pain Radiating to Arm/Neck/Jaw, Leg Edema, Leg Ulcers, Lightheadedness, Orthopnea, Palpitations, Paroxysmal Nocturna l Dyspnea, Pedal Edema, Radiating Pain, Rapid Heart Rate, Slow Heart Rate, Syncope, Other - Respiratory Respiratory: absent: As Per HPI, Cough, Dyspnea, Hemoptysis, Dyspnea on Exertion, Wheezing, Snoring, Stridor, Pain on Inspiration, Chest Congestion, Excessive Mucous Production, Change in Mucous Color, Pain with Coughing, Other - Gastrointestinal Gastrointestinal: absent: As Per HPI, Abdominal Pain, Belching, Bloating, Change in Bowel Habits, Change in Stool Character, Coffee Ground Emesis, Constipation, Cramping, Diarrhea, Dyspepsia, Dysphagia, Early Satiety, Excessive Flatus, Fecal Incontinence, Heartburn, Hematemesis, Hematochezia, Loose Stools, Melena, Nausea, Odynophagia, Temesmus, Vomiting, Other - Genitourinary Genitourinary: absent: As Per HPI, Change in Urinary Stream, Difficulty Urinating, Dysuria, Flank Pain, Hematuria, Pyuria, Nocturia, Urinary Incontinence, Urinary Frequency, Urinary Hesitance, Urinary Urgency, Voiding Freq/Small Amts, Freq UTI, Hx Renal/Bladder Calculi, Hx /Renal Surgery, Bladder Distension, Other - Musculoskeletal Musculoskeletal: absent: As Per HPI, Abnormal Gait, Arthralgias, Atrophy, Back Pain, Deformity, Joint Swelling, Limited Range of Motion, Loss of Height, Muscle Cramps, Muscle Weakness, Myalgias, Neck Pain, Numbness, Radiating Pain into Limb, Stiffness, Tingling, Other - Integumentary Integumentary: absent: As Per HPI, Acne, Alopecia, Bleeding Lesions, Change in Hair, Change in Nails, Change in Pigmentation, Changing Lesions, Dry Skin, Erythema, Furuncle, Hirsutism, Lesions, New Lesions, Non-Healing Lesions, Photosensitivity, Pruritus, Rash, Skin Pain, Skin Ulcer, Sores, Striae, Swelling, Unusual Bruising, Wounds, Jaundice, Other Past Patient History - Tetanus Immunizations Tetanus Immunization: Unknown - Past Medical History & Family History Past Medical History?: Yes - Past Social History Smoking Status: Never Smoked - CARDIAC Hx Hypercholesterolemia: Yes Hx Hypertension: Yes - PULMONARY Hx Respiratory Disorders: No - NEUROLOGICAL Hx Neurological Disorder: No - HEENT Hx HEENT Problems: No - RENAL Hx Chronic Kidney Disease: No - ENDOCRINE/METABOLIC Hx Endocrine Disorders: No - HEMATOLOGICAL/ONCOLOGICAL Hx Human Immunodeficiency Virus (HIV): No - INTEGUMENTARY Hx Dermatological Problems: No - MUSCULOSKELETAL/RHEUMATOLOGICAL Hx Falls: No Hx Fractures: Yes - GASTROINTESTINAL Hx Gastrointestinal Disorders: No - GENITOURINARY/GYNECOLOGICAL Hx Genitourinary Disorders: No - PSYCHIATRIC Hx Psychophysiologic Disorder: No Hx Substance Use: No - SURGICAL HISTORY Hx Coronary Artery Bypass Graft: Yes - ANESTHESIA Hx Anesthesia: Yes Hx Anesthesia Reactions: No Hx Malignant Hyperthermia: No Meds Allergies/Adverse Reactions: Allergies Allergy/AdvReac Type Severity Reaction Status Date / Time No Known Allergies Allergy Verified 07/25/18 04:59 - Medications Medications: Current Medications Acetaminophen (Tylenol 325mg Tab) 650 mg PO Q6 PRN PRN Reason: Fever >100.4 F Aspirin (Ecotrin) 81 mg PO DAILY [facility] Last Admin: 07/27/18 10:15 Dose: 81 mg Atorvastatin Calcium (Lipitor) 40 mg PO HS [facility] Last Admin: 07/26/18 23:12 Dose: 40 mg Heparin Sodium (Porcine) (Heparin) 5,000 units SC Q12 [facility]; Protocol Last Admin: 07/27/18 10:15 Dose: 5,000 units Meropenem 500 mg/ Sodium (Chloride) 100 mls @ 100 mls/hr IVPB Q8@0600,1400,2200 [facility]; Protocol Last Admin: 07/27/18 05:06 Dose: 100 mls/hr Physical Exam - Constitutional Appears: Non-toxic, Cachectic, Chronically Ill - Head Exam Head Exam: ATRAUMATIC, NORMAL INSPECTION, NORMOCEPHALIC - Eye Exam Eye Exam: PERRL. absent: Scleral icterus - ENT Exam ENT Exam: Mucous Membranes Dry, Normal External Ear Exam - Neck Exam Neck exam: Negative for: Lymphadenopathy - Respiratory Exam Respiratory Exam: Decreased Breath Sounds, Clear to Auscultation Bilateral - Cardiovascular Exam Cardiovascular Exam: REGULAR RHYTHM, +S1, +S2 - GI/Abdominal Exam GI & Abdominal Exam: Diminished Bowel Sounds, Soft. absent: Tenderness - Rectal Exam Rectal Exam: Deferred - Exam Exam: NORMAL INSPECTION - Extremities Exam Extremities exam: Negative for: pedal edema - Back Exam Back exam: absent: CVA tenderness (L), CVA tenderness (R) - Neurological Exam Neurological exam: Alert, CN II-XII Intact, Oriented x3, Reflexes Normal - Psychiatric Exam Psychiatric exam: Depressed Results - Vital Signs Recent Vital Signs: Last Vital Signs Temp 99.6 F 07/27/18 07:58 Pulse 79 07/27/18 09:00 Resp 18 07/27/18 07:58 BP 124/75 07/27/18 07:58 Pulse Ox 94 L 07/27/18 07:58 - Labs Result Diagrams: 07/27/18 04:25 07/26/18 04:55 Labs: Laboratory Results - last 24 hr 07/27/18 04:25 WBC 10.9 H RBC 3.43 L Hgb 10.5 L Hct 31.3 L MCV 91.3 MCH 30.7 MCHC 33.6 RDW 13.3 Plt Count 117 L Assessment & Plan (1) Renal insufficiency Status: Acute (2) Sepsis Status: Acute (3) UTI (urinary tract infection) Status: Acute (4) Chest pain Status: Acute Priority: High (5) Constipation Status: Acute (6) Hypertension Status: Acute Priority: High - Assessment and Plan (Free Text) Assessment: AWAIT CULTURES OF BLOOD AND URINE IV MERREM ADDED
[2018-07-27] MEDS: Sodium Chloride 0.9% 1,000 ML IV SCH ×2 (14:13→17:26)
[2018-07-27 14:17] VITALS: BMI 18.3
[2018-07-27] MEDS ORDERED: Potassium Chloride 10 mEq ER Tab PO ONE (15:54)
--- NOTE | 2018-07-27 15:59 | CP.PCM.PN ---
Subjective - Date & Time of Evaluation Date of Evaluation: 07/27/18 Time of Evaluation: 10:00 - Subjective Subjective: 82 y/o m was seen and examiend by bedside. Pt reports feeling well, denies fever, headache, chill, chest pain, abdominal pain or dysuria. Pt afebrile, with acute events overnight. Tolerating PO. Objective - Vital Signs/Intake and Output Vital Signs (last 24 hours): Temp Pulse Resp BP Pulse Ox 99.5 F 74 20 127/60 96 07/27/18 15:41 07/27/18 15:41 07/27/18 15:41 07/27/18 15:41 07/27/18 15:41 - Medications Medications: Current Medications Acetaminophen (Tylenol 325mg Tab) 650 mg PO Q6 PRN PRN Reason: Fever >100.4 F Aspirin (Ecotrin) 81 mg PO DAILY [facility] Last Admin: 07/27/18 10:15 Dose: 81 mg Atorvastatin Calcium (Lipitor) 40 mg PO HS [facility] Last Admin: 07/26/18 23:12 Dose: 40 mg Heparin Sodium (Porcine) (Heparin) 5,000 units SC Q12 [facility]; Protocol Last Admin: 07/27/18 10:15 Dose: 5,000 units Meropenem 500 mg/ Sodium (Chloride) 100 mls @ 100 mls/hr IVPB Q8@0600,1400,2200 [facility]; Protocol Last Admin: 07/27/18 14:10 Dose: 100 mls/hr - Labs Labs: 07/27/18 04:25 07/26/18 04:55 - Additional Findings Additional findings: - Constitutional Appears: No Acute Distress - Head Exam Head Exam: ATRAUMATIC, NORMAL INSPECTION - Eye Exam Eye Exam: EOMI - ENT Exam ENT Exam: Mucous Membranes Dry - Neck Exam Neck Exam: Full ROM. absent: Meningismus - Respiratory Exam Respiratory Exam: NORMAL BREATHING PATTERN. absent: Rhonchi, Wheezes - Cardiovascular Exam Cardiovascular Exam: REGULAR RHYTHM, +S1, +S2 - GI/Abdominal Exam GI & Abdominal Exam: Soft. absent: Distended, Guarding, Tenderness - Extremities Exam Extremities Exam: Full ROM. absent: Calf Tenderness - Back Exam Back Exam: Full ROM. absent: CVA tenderness (L), CVA tenderness (R), paraspinal tenderness - Neurological Exam Neurological Exam: Alert, Awake, Oriented x3 Assessment and Plan - Assessment and Plan (Free Text) Assessment: 82 yo male patient with PMH of HTN, HLD and CAD admitted with UTI and sepsis signs. - Abd CT negative for pyelo or hydronephrosis PLAN: --WBC 10.9mildly elevated today --DANIEL: Cr trending down 1.7 today. Will administer IV fluids. --Hypokalemia (K+ 3.5). Will order another dose of K-dur. --ID consult ordered, Dr Abdalla. --IV Meropenem added as per ID. --F/u CBC, BMP, pro-calcitonin tomorrow. --Continue rest of plan as ordered Case discussed with Dr Santos. Keith PGY-2.
--- NOTE | 2018-07-27 18:44 | CP.PCM.CON ---
History of Present Illness - History of Present Illness History of Present Illness: I was asked to see patient by Dr Santos. Patient seen 07/27/18 [id number] Patient is a 82 year old male with CAD s/p CABG, HTN, who presents with fever chills lethargy. The patient was found to have urospesis. He was currently on IV antibiotics. The patient was found to be in atrial flutter. The patient has no history of atrial flutter. His cardiology follow up is in [place]. He is currently comfortable. Review of Systems - Constitutional Constitutional: absent: As Per HPI, Anorexia, Chills, Daytime Sleepiness, Excessive Sweating, Fatigue, Fever, Frequent Falls, Headache, Increased Appetite, Lethargy, Malaise, Night Sweats, Snoring, Sleep Apnea, Weight Gain, Weight Loss, Weakness, Other - EENT Eyes: absent: As Per HPI, Blind Spots, Blurred Vision, Change in Vision, Decreased Night Vision, Diplopia, Discharge, Dry Eye, Exophthalmos, Floaters, Irritation, Itchy Eyes, Loss of Peripheral Vision, Pain, Photophobia, Requires Corrective Lenses, Sees Flashes, Spots in Vision, Tunnel Vision, Other Visual Disturbances, Loss of Vision, Other Ears: absent: As Per HPI, Decreased Hearing, Ear Discharge, Ear Pain, Tinnitus, Abnormal Hearing, Disequilibrium, Dizziness, Other Nose/Mouth/Throat: absent: As Per HPI, Epistaxis, Nasal Congestion, Nasal Discharge, Nasal Obstruction, Nasal Trauma, Nose Pain, Post Nasal Drip, Sinus Pain, Sinus Pressure, Bleeding Gums, Change in Voice, Dental Pain, Dry Mouth, Dysphagia, Halitosis, Hoarsness, Lip Swelling, Mouth Lesions, Mouth Pain, Odynophagia, Sore Throat, Throat Swelling, Tongue Swelling, Facial Pain, Neck Pain, Neck Mass, Other - Cardiovascular Cardiovascular: absent: As Per HPI, Acrocyanosis, Chest Pain, Chest Pain at Rest, Chest Pain with Activity, Claudication, Diaphoresis, Dyspnea, Dyspnea on Exertion, Edema, Irregular Heart Rhythm, Pain Radiating to Arm/Neck/Jaw, Leg Edema, Leg Ulcers, Lightheadedness, Orthopnea, Palpitations, Paroxysmal Nocturnal Dyspnea, Pedal Edema, Radiating Pain, Rapid Heart Rate, Slow Heart Rate, Syncope, Other - Respiratory Respiratory: absent: As Per HPI, Cough, Dyspnea, Hemoptysis, Dyspnea on Exertion, Wheezing, Snoring, Stridor, Pain on Inspiration, Chest Congestion, Excessive Mucous Production, Change in Mucous Color, Pain with Coughing, Other - Gastrointestinal Gastrointestinal: absent: As Per HPI, Abdominal Pain, Belching, Bloating, Change in Bowel Habits, Change in Stool Character, Coffee Ground Emesis, Constipation, Cramping, Diarrhea, Dyspepsia, Dysphagia, Early Satiety, Excessive Flatus, Fecal Incontinence, Heartburn, Hematemesis, Hematochezia, Loose Stools, Melena, Nausea, Odynophagia, Temesmus, Vomiting, Other - Genitourinary Genitourinary: absent: As Per HPI, Change in Urinary Stream, Difficulty Urinating, Dysuria, Flank Pain, Hematuria, Pyuria, Nocturia, Urinary Incontinence, Urinary Frequency, Urinary Hesitance, Urinary Urgency, Voiding Freq/Small Amts, Freq UTI, Hx Renal/Bladder Calculi, Hx /Renal Surgery, Bladder Distension, Other - Musculoskeletal Musculoskeletal: absent: As Per HPI, Abnormal Gait, Arthralgias, Atrophy, Back Pain, Deformity, Joint Swelling, Limited Range of Motion, Loss of Height, Muscle Cramps, Muscle Weakness, Myalgias, Neck Pain, Numbness, Radiating Pain into Limb, Stiffness, Tingling, Other - Integumentary Integumentary: absent: As Per HPI, Acne, Alopecia, Bleeding Lesions, Change in Hair, Change in Nails, Change in Pigmentation, Changing Lesions, Dry Skin, Erythema, Furuncle, Hirsutism, Lesions, New Lesions, Non-Healing Lesions, Photosensitivity, Pruritus, Rash, Skin Pain, Skin Ulcer, Sores, Striae, Swelling, Unusual Bruising, Wounds, Jaundice, Other - Neurological Neurological: absent: As Per HPI, Abnormal Gait, Abnormal Hearing, Abnormal Mov ements, Abnormal Speech, Behavioral Changes, Burning Sensations, Confusion, Convulsions, Disequilibrium, Dizziness, Numbness, Focal Weakness, Frequent Falls, Headaches, Lack of Coordination, Loss of Vision, Memory Loss, Paresthesias, Radicular Pain, Restless Legs, Sensory Deficit, Syncope, Tingling, Tremor, Vertigo, Weakness, Other Visual Disturbances, Other - Psychiatric Psychiatric: absent: As Per HPI, Abnormal Sleep Pattern, Anhedonia, Anxiety, Auditory Hallucinations, Behavioral Changes, Change in Appetite, Change in Libido, Confusion, Depression, Difficulty Concentrating, Hallucinations, Homicidal Ideation, Hopelessness, Irritability, Memory Loss, Mood Swings, Panic Attacks, Paranoia, Suicidal Ideation, Visual Hallucinations, Tactile Hallucinations, Other - Endocrine Endocrine: absent: As Per HPI, Change in Body Appearance, Change in Libido, Cold Intolorance, Deepening of Voice, Excessive Sweating, Fatigue, Flushing, Heat Intolorance, Increase in Ring/Shoe/Hat Size, Palpitations, Polydipsia, Polyphagia, Polyuria, Other - Hematologic/Lymphatic Hematologic: absent: As Per HPI, Easy Bleeding, Easy Bruising, Lymphadenopathy, Other Past Patient History - Tetanus Immunizations Tetanus Immunization: Unknown - Past Medical History & Family History Past Medical History?: Yes - Past Social History Smoking Status: Never Smoked - CARDIAC Hx Hypercholesterolemia: Yes Hx Hypertension: Yes - PULMONARY Hx Respiratory Disorders: No - NEUROLOGICAL Hx Neurological Disorder: No - HEENT Hx HEENT Problems: No - RENAL Hx Chronic Kidney Disease: No - ENDOCRINE/METABOLIC Hx Endocrine Disorders: No - HEMATOLOGICAL/ONCOLOGICAL Hx Human Immunodeficiency Virus (HIV): No - INTEGUMENTARY Hx Dermatological Problems: No - MUSCULOSKELETAL/RHEUMATOLOGICAL Hx Falls: No Hx Fractures: Yes - GASTROINTESTINAL Hx Gastrointestinal Disorders: No - GENITOURINARY/GYNECOLOGICAL Hx Genitourinary Disorders: No - PSYCHIATRIC Hx Psychophysiologic Disorder: No Hx Substance Use: No - SURGICAL HISTORY Hx Coronary Artery Bypass Graft: Yes - ANESTHESIA Hx Anesthesia: Yes Hx Anesthesia Reactions: No Hx Malignant Hyperthermia: No Meds Allergies/Adverse Reactions: Allergies Allergy/AdvReac Type Severity Reaction Status Date / Time No Known Allergies Allergy Verified 07/25/18 04:59 - Medications Medications: Current Medications Acetaminophen (Tylenol 325mg Tab) 650 mg PO Q6 PRN PRN Reason: Fever >100.4 F Aspirin (Ecotrin) 81 mg PO DAILY [facility] Last Admin: 07/27/18 10:15 Dose: 81 mg Atorvastatin Calcium (Lipitor) 40 mg PO HS [facility] Last Admin: 07/26/18 23:12 Dose: 40 mg Heparin Sodium (Porcine) (Heparin) 5,000 units SC Q12 [facility]; Protocol Last Admin: 07/27/18 10:15 Dose: 5,000 units Meropenem 500 mg/ Sodium (Chloride) 100 mls @ 100 mls/hr IVPB Q8@0600,1400,2200 [facility]; Protocol Last Admin: 07/27/18 14:10 Dose: 100 mls/hr Sodium Chloride (Sodium Chloride 0.9%) 1,000 mls @ 100 mls/hr IV .Q10H [facility] Stop: 07/28/18 15:55 Last Admin: 07/27/18 17:26 Dose: 100 mls/hr Physical Exam - Constitutional Appears: Non-toxic - Head Exam Head Exam: NORMAL INSPECTION - Eye Exam Eye Exam: Normal appearance. absent: Periorbital swelling, Periorbital tenderness - ENT Exam ENT Exam: Mucous Membranes Moist - Neck Exam Neck exam: Positive for: Full Rom, Normal Inspection, Tenderness. Negative for: Lymphadenopathy, Thyromegaly - Respiratory Exam Respiratory Exam: NORMAL BREATHING PATTERN. absent: Decreased Breath Sounds - Cardiovascular Exam Cardiovascular Exam: Irregular Rhythm. absent: JVD, Systolic Murmur - GI/Abdominal Exam GI & Abdominal Exam: Normal Bowel Sounds, Soft. absent: Distended, Firm, Guarding, Hernia, Organomegaly, Pulsatile Mass, Rebound - Rectal Exam Rectal Exam: Deferred - Extremities Exam Extremities exam: Positive for: normal inspection. Negative for: pedal edema, tenderness - Back Exam Back exam: NORMAL INSPECTION - Neurological Exam Neurological exam: Alert, Oriented x3 - Psychiatric Exam Psychiatric exam: Normal Affect - Skin Skin Exam: Normal Color Results - Vital Signs Recent Vital Signs: Last Vital Signs Temp 99.5 F 07/27/18 15:41 Pulse 74 07/27/18 15:41 Resp 20 07/27/18 15:41 BP 127/60 07/27/18 15:41 Pulse Ox 96 07/27/18 15:41 - Labs Result Diagrams: 07/27/18 04:25 07/26/18 04:55 Labs: Laboratory Results - last 24 hr 07/27/18 04:25 WBC 10.9 H RBC 3.43 L Hgb 10.5 L Hct 31.3 L MCV 91.3 MCH 30.7 MCHC 33.6 RDW 13.3 Plt Count 117 L - EKG Data EKG Interpreted by: Myself Assessment & Plan (1) Atrial flutter Assessment and Plan: currently rate controlled. The duration of atrial flutter is unclear. recommend continue medical therapy.will discuss with family regarding anticoagulation. Echocardiogram reviewed Status: Acute (2) CAD (coronary artery disease) Assessment and Plan: no current angina. Status: Acute (3) Hypertension Assessment and Plan: blood pressure control Status: Acute Priority: High
[2018-07-28 00:58] VITALS: RESP 18
[2018-07-28] MEDS: Sodium Chloride 0.9% 1,000 ML IV SCH ×2 (02:00→12:38)
[2018-07-28] MEDS: Meropenem 500 MG in Sodium Chloride 0.9% 100 ML IVPB SCH (05:32)
[2018-07-28 06:57] LABS: HEMOGLOBIN 12.1 g/dL (12.0-18.0); MEAN CELL VOLUME 89.8 fl (80.0-94.0); MEAN CORPUSCULAR HEMOGLOBIN 30.7 pg (27.0-31.0); MEAN CORPUSCULAR HGB CONC 34.2 g/dL (33.0-37.0); RBC 3.95 Mil/uL (4.40-5.90); RED CELL DISTRIBUTION WIDTH 13.4 % (11.5-14.5); WHITE BLOOD COUNT 4.9 K/uL (4.8-10.8)
[2018-07-28 07:28] LABS: BLOOD UREA NITROGEN 16 mg/dl (9-20); GFR NON-AFRICAN AMERICAN 58
[2018-07-28] MEDS: Ciprofloxacin 400mg/200ml D5W 400 MG/200 ML BAG IVPB SCH ×2 (12:16→22:23)
--- NOTE | 2018-07-28 18:49 | CP.PCM.PN ---
Subjective - Date & Time of Evaluation Date of Evaluation: 07/28/18 Time of Evaluation: 10:00 - Subjective Subjective: patient seen and examined at bedside. no acute events overnight. no other complaints reported. no f/c. Objective - Vital Signs/Intake and Output Vital Signs (last 24 hours): Temp Pulse Resp BP Pulse Ox 100.0 F H 86 18 154/67 H 96 07/28/18 15:47 07/28/18 15:47 07/28/18 15:47 07/28/18 15:47 07/28/18 15:47 - Medications Medications: Current Medications Acetaminophen (Tylenol 325mg Tab) 650 mg PO Q6 PRN PRN Reason: Fever >100.4 F Aspirin (Ecotrin) 81 mg PO DAILY [facility] Last Admin: 07/28/18 09:53 Dose: 81 mg Atorvastatin Calcium (Lipitor) 40 mg PO HS [facility] Last Admin: 07/27/18 22:21 Dose: 40 mg Heparin Sodium (Porcine) (Heparin) 5,000 units SC Q12 [facility]; Protocol Last Admin: 07/28/18 09:53 Dose: 5,000 units Ciprofloxacin (Cipro 400mg/200ml Dsw) 400 mg in 200 mls @ 200 mls/hr IVPB Q12 [facility]; Protocol Last Admin: 07/28/18 12:16 Dose: 200 mls/hr - Labs Labs: 07/28/18 05:50 07/28/18 05:50 - Additional Findings Additional findings: - Constitutional Appears: No Acute Distress - Head Exam Head Exam: ATRAUMATIC, NORMAL INSPECTION - Respiratory Exam Respiratory Exam: NORMAL BREATHING PATTERN. absent: Rhonchi, Wheezes - Cardiovascular Exam Cardiovascular Exam: REGULAR RHYTHM, +S1, +S2 - GI/Abdominal Exam GI & Abdominal Exam: Soft. absent: Distended, Guarding, Tenderness - Back Exam Back Exam: Full ROM. absent: CVA tenderness (L), CVA tenderness (R) - Neurological Exam Neurological Exam: Alert, Awake, Oriented x3 Assessment and Plan - Assessment and Plan (Free Text) Assessment: 82 yo male patient with PMH of HTN, HLD and CAD admitted with UTI and sepsis. Abd CT negative for pyelo or hydronephrosis. blood culture positive for e coli. bacteremia present. likely from urine. urine c/s collected after abx use. PLAN: --WBC improved to normal --DANIEL: Cr trending down 1.2 today. c/w IV fluids. --Hypokalemia improved --ID consult appreciated, Dr Abdalla. --will change to cipro due to blood cx --Continue rest of plan as ordered, dispo planning
[2018-07-29 08:28] LABS: HEMOGLOBIN 12.1 g/dL (12.0-18.0); MEAN CELL VOLUME 92.1 fl (80.0-94.0); MEAN CORPUSCULAR HEMOGLOBIN 30.3 pg (27.0-31.0); MEAN CORPUSCULAR HGB CONC 32.9 g/dL (33.0-37.0); RED CELL DISTRIBUTION WIDTH 13.6 % (11.5-14.5); WHITE BLOOD COUNT 4.5 K/uL (4.8-10.8)
[2018-07-29 08:31] LABS: ALB/GLOB RATIO 0.8 (1.0-2.1); ALBUMIN 2.8 g/dL (3.5-5.0); ALT/SGPT 62 U/L (21-72); AST/SGOT 73 U/L (17-59); BLOOD UREA NITROGEN 12 mg/dl (9-20); CALCIUM 8.1 mg/dL (8.4-10.2); GFR NON-AFRICAN AMERICAN > 60
[2018-07-29] MEDS: Ciprofloxacin 400mg/200ml D5W 400 MG/200 ML BAG IVPB SCH (08:53)
[2018-07-29 12:12] VITALS: BP 166/85; PULSE 85; TEMP 98.8; O2SAT 97
--- NOTE | 2018-07-29 13:24 | CP.PCM.PN ---
Subjective - Date & Time of Evaluation Date of Evaluation: 07/29/18 Time of Evaluation: 09:00 - Subjective Subjective: admitted with UTI blood c/s + E Coli cont iv then PO antibiotics with follow up Objective - Vital Signs/Intake and Output Vital Signs (last 24 hours): Temp Pulse Resp BP Pulse Ox 98.8 F 85 18 166/85 H 97 07/29/18 12:11 07/29/18 12:11 07/29/18 12:11 07/29/18 12:11 07/29/18 12:11 - Medications Medications: Current Medications Acetaminophen (Tylenol 325mg Tab) 650 mg PO Q6 PRN PRN Reason: Fever >100.4 F Aspirin (Ecotrin) 81 mg PO DAILY [facility] Last Admin: 07/29/18 08:54 Dose: 81 mg Atorvastatin Calcium (Lipitor) 40 mg PO HS [facility] Last Admin: 07/28/18 22:22 Dose: 40 mg Heparin Sodium (Porcine) (Heparin) 5,000 units SC Q12 [facility]; Protocol Last Admin: 07/29/18 08:54 Dose: 5,000 units Ciprofloxacin (Cipro 400mg/200ml Dsw) 400 mg in 200 mls @ 200 mls/hr IVPB Q12 [facility]; Protocol Last Admin: 07/29/18 08:53 Dose: 200 mls/hr - Labs Labs: 07/29/18 06:00 07/29/18 06:00 - Constitutional Appears: Chronically Ill - Head Exam Head Exam: NORMOCEPHALIC - Eye Exam Eye Exam: PERRL - Neck Exam Neck Exam: absent: Lymphadenopathy - Respiratory Exam Respiratory Exam: Decreased Breath Sounds - Cardiovascular Exam Cardiovascular Exam: REGULAR RHYTHM - GI/Abdominal Exam GI & Abdominal Exam: Distended - Rectal Exam Rectal Exam: Deferred - Exam Exam: NORMAL INSPECTION - Extremities Exam Extremities Exam: absent: Pedal Edema - Back Exam Back Exam: absent: CVA tenderness (L), CVA tenderness (R) - Neurological Exam Neurological Exam: Alert, Awake, CN II-XII Intact, Oriented x3 - Psychiatric Exam Psychiatric exam: Normal Mood Assessment and Plan (2) Sepsis Status: Acute (4) Chest pain Status: Acute (5) Constipation Status: Acute (6) Hypertension Status: Acute
--- NOTE | 2018-07-30 19:57 | CP.PCM.DIS ---
Provider - Provider Date of Admission: 07/25/18 10:32 Attending physician: Srikanth Santos MD Time Spent in preparation of Discharge (in minutes): 30 Diagnosis - Discharge Diagnosis (1) Sepsis Status: Resolved (2) Atrial flutter Status: Chronic Hospital Course - Lab Results Lab Results: Micro Results 07/25/18 05:30 Blood Blood Culture - Final NO GROWTH AFTER 5 DAYS 07/25/18 05:30 Blood Gram Stain - Final TEST NOT PERFORMED 07/25/18 05:15 Blood Blood Culture - Final Escherichia Coli 07/25/18 05:15 Blood Gram Stain - Final 07/26/18 14:02 Urine,Clean Catch Urine Culture - Final No Growth (<1,000 CFU/ML) Most Recent Lab Values WBC 4.5 K/uL (4.8-10.8) L 07/29/18 06:00 RBC 4.00 Mil/uL (4.40-5.90) L 07/29/18 06:00 Hgb 12.1 g/dL (12.0-18.0) 07/29/18 06:00 Hct 36.8 % (35.0-51.0) 07/29/18 06:00 MCV 92.1 fl (80.0-94.0) D 07/29/18 06:00 MCH 30.3 pg (27.0-31.0) 07/29/18 06:00 MCHC 32.9 g/dL (33.0-37.0) L 07/29/18 06:00 RDW 13.6 % (11.5-14.5) 07/29/18 06:00 Plt Count 185 K/uL (130-400) 07/29/18 06:00 MPV 10.6 fl (7.2-11.7) 07/26/18 04:55 Neut % (Auto) 89.7 % (50.0-75.0) H 07/26/18 04:55 Lymph % (Auto) 3.4 % (20.0-40.0) L 07/26/18 04:55 Luce % (Auto) 6.5 % (0.0-10.0) 07/26/18 04:55 Eos % (Auto) 0.2 % (0.0-4.0) 07/26/18 04:55 Baso % (Auto) 0.2 % (0.0-2.0) 07/26/18 04:55 Neut # (Auto) 18.4 K/uL (1.8-7.0) H 07/26/18 04:55 Lymph # (Auto) 0.7 K/uL (1.0-4.3) L 07/26/18 04:55 Luce # (Auto) 1.3 K/uL (0.0-0.8) H 07/26/18 04:55 Eos # (Auto) 0.0 K/uL (0.0-0.7) 07/26/18 04:55 Baso # (Auto) 0.0 K/uL (0.0-0.2) 07/26/18 04:55 Neutrophils % (Manual) 95 % (42-75) H 07/25/18 05:46 Lymphocytes % (Manual) 3 % (20-50) L 07/25/18 05:46 Monocytes % (Manual) 2 % (0-10) 07/25/18 05:46 Platelet Estimate Slightly decreased (NORMAL) L 07/25/18 05:46 Large Platelets Present 07/25/18 05:46 Anisocytosis (manual) Slight 07/25/18 05:46 Microcytosis (manual) Slight 07/25/18 05:46 Ovalocytes Slight 07/25/18 05:46 pO2 37 mm/Hg (30-55) 07/25/18 09:01 VBG pH 7.35 (7.32-7.43) 07/25/18 09:01 VBG pCO2 37 mmHg (40-60) L 07/25/18 09:01 VBG HCO3 20.6 mmol/L 07/25/18 09:01 VBG Total CO2 21.5 mmol/L (22-28) L 07/25/18 09:01 VBG O2 Sat (Calc) 76.9 % (40-65) H 07/25/18 09:01 VBG Base Excess -4.7 mmol/L (0.0-2.0) L 07/25/18 09:01 VBG Potassium 2.5 mmol/L (3.6-5.2) L* 07/25/18 09:01 Sodium 132.0 mmol/L (132-148) 07/25/18 09:01 Chloride 105.0 mmol/L (98-107) 07/25/18 09:01 Glucose 115 mg/dL (75-110) H 07/25/18 09:01 Lactate 2.1 mmol/L (0.7-2.1) 07/25/18 09:01 FiO2 21.0 % 07/25/18 09:01 Crit Value Called To Dr terrence lama 07/25/18 09:01 Crit Value Called By Dedra 07/25/18 09:01 Crit Value Read Back Y 07/25/18 09:01 Blood Gas Notified Time 1000 07/25/18 09:01 Sodium 139 mmol/l (132-148) 07/29/18 06:00 Potassium 3.6 MMOL/L (3.6-5.0) 07/29/18 06:00 Chloride 109 mmol/L (98-107) H 07/29/18 06:00 Carbon Dioxide 24 mmol/L (22-30) 07/29/18 06:00 Anion Gap 10 (10-20) 07/29/18 06:00 BUN 12 mg/dl (9-20) 07/29/18 06:00 Creatinine 1.1 mg/dl (0.8-1.5) 07/29/18 06:00 Est GFR ( Amer) > 60 07/29/18 06:00 Est GFR (Non-Af Amer) > 60 07/29/18 06:00 POC Glucose (mg/dL) 145 mg/dL (65-110) H 07/25/18 05:10 Random Glucose 111 mg/dL (75-110) H 07/29/18 06:00 Lactic Acid 2.7 MMOL/L (0.7-2.1) H 07/25/18 05:46 Calcium 8.1 mg/dL (8.4-10.2) L 07/29/18 06:00 Total Bilirubin 0.7 mg/dl (0.2-1.3) 07/29/18 06:00 AST 73 U/L (17-59) H D 07/29/18 06:00 ALT 62 U/L (21-72) 07/29/18 06:00 Alkaline Phosphatase 116 U/L (38-126) 07/29/18 06:00 Troponin I 0.0430 ng/mL (0.00-0.120) 07/28/18 05:50 Total Protein 6.2 G/DL (6.3-8.2) L 07/29/18 06:00 Albumin 2.8 g/dL (3.5-5.0) L 07/29/18 06:00 Globulin 3.4 gm/dL (2.2-3.9) 07/29/18 06:00 Albumin/Globulin Ratio 0.8 (1.0-2.1) L 07/29/18 06:00 Procalcitonin 18.76 NG/ML (0.19-0.49) H 07/29/18 06:00 Venous Blood Potassium 2.5 mmol/L (3.6-5.2) L* 07/25/18 09:01 Urine Color Yellow (YELLOW) 07/25/18 10:04 Urine Clarity Cloudy (Clear) 07/25/18 10:04 Urine pH 6.0 (5.0-8.0) 07/25/18 10:04 Ur Specific [place] 1.009 (1.003-1.030) 07/25/18 10:04 Urine Protein 30 mg/dL (NEGATIVE) 07/25/18 10:04 Urine Glucose (UA) Neg mg/dL (Normal) 07/25/18 10:04 Urine Ketones Negative mg/dL (NEGATIVE) 07/25/18 10:04 Urine Blood Moderate (NEGATIVE) 07/25/18 10:04 Urine Nitrate Positive (NEGATIVE) H 07/25/18 10:04 Urine Bilirubin Negative (NEGATIVE) 07/25/18 10:04 Urine Urobilinogen 0.2-1.0 mg/dL (0.2-1.0) 07/25/18 10:04 Ur Leukocyte Esterase Large Jennifer/uL (Negative) 07/25/18 10:04 Urine RBC (Auto) 6 /hpf (0-3) H 07/25/18 10:04 Urine Microscopic WBC 178 /hpf (0-5) H 07/25/18 10:04 Ur Squamous Epith Cells < 1 /hpf (0-5) 07/25/18 10:04 Urine Bacteria Many (<OCC) H 07/25/18 10:04 Influenza Typ A,B ([facility]) Negative for flu a/b (NEGATIVE) 07/25/18 06:58 - Hospital Course Hospital Course: 82 yo male patient with PMH of HTN, HLD and CAD admitted with UTI and sepsis. Abd CT negative for pyelo or hydronephrosis. blood culture positive for e coli. bacteremia present. likely from urine. urine c/s collected after abx use. Possibly prostatis. Patient had episode of atrial flutter, Cardiology consulted. Patient discharged in stable condition, cipro x 14 days. Follow up with urology/cardiology. Discharge Exam - Head Exam Head Exam: NORMOCEPHALIC - Eye Exam Eye Exam: Normal appearance - Respiratory Exam Respiratory Exam: Clear to PA & Lateral, NORMAL BREATHING PATTERN, UNREMARKABLE - Cardiovascular Exam Cardiovascular Exam: +S1, +S2 - GI/Abdominal Exam GI & Abdominal Exam: Normal Bowel Sounds, Soft, Unremarkable - Extremities Exam Extremities exam: normal inspection - Neurological Exam Neurological exam: Alert, Oriented x3 - Psychiatric Exam Psychiatric exam: Normal Affect, Normal Mood - Skin Skin Exam: Normal Color, Warm Discharge Plan - Discharge Medications Prescriptions: Ciprofloxacin HCl [Cipro] 500 mg PO BID 14 Days tablet - Follow Up Plan Condition: STABLE Disposition: HOME/ ROUTINE Additional Instructions: follow up with primary care provider and cardiology this week
== END 2018-07-29 15:20 | disposition home or self-care (01) | DRG 872 ==
LOC: H.ER 04:53 → H.ERHOLD 10:32 → H.TEL 13:48
PROVIDERS: ADMIT Family Medicine; ATTEND Family Medicine
PROC: 3E02340 Introduction of Influenza Vaccine into Muscle, Percutaneous Approach (ICD-10-PCS; principal; 2018-07-25)
PROC: 3E0234Z Introduction of Serum, Toxoid and Vaccine into Muscle, Percutaneous Approach (ICD-10-PCS; 2018-07-25)
DX: A41.51 Sepsis due to Escherichia coli [E. coli] (principal); I48.92 Unspecified atrial flutter; N39.0 Urinary tract infection, site not specified; B96.20 Unspecified Escherichia coli [E. coli] as the cause of diseases classified elsewhere; E78.00 Pure hypercholesterolemia, unspecified; E78.5 Hyperlipidemia, unspecified; I10 Essential (primary) hypertension; I25.10 Atherosclerotic heart disease of native coronary artery without angina pectoris; K59.00 Constipation, unspecified; N28.9 Disorder of kidney and ureter, unspecified; Z95.1 Presence of aortocoronary bypass graft; I95.9 Hypotension, unspecified; R00.0 Tachycardia, unspecified; Z23 Encounter for immunization